=== PATIENT | female | born 1965 | race Caucasian/White ===

== ENCOUNTER 2018-01-23 09:54 | Emergency (ER) | payer BC, SELFPAY ==
--- NOTE | 2018-01-23 10:18 | EDPHYS ---
Physician Documentation [facility] Name: Lashanda Ureña Age: 52 yrs Sex: Female : 1965 Arrival Date: 01/23/2018 Time: 09:57 Bed 24 Private MD: Mitchell Reagan ED Physician Omar Cisneros HPI: 01/23 10:14 This 52 yrs old Female presents to ER via Ambulatory with complaints of Head gs Injury Without LOC-Adult. 10:14 The patient or guardian reports injury. The complaints affect the forehead. Context of gs injury: The problem was sustained at work, resulted from a fall, while walking. Onset: The symptoms/episode began/occurred suddenly, just prior to arrival. Associated signs and symptoms: Loss of consciousness: This patient did not experience any loss of consciousness. Pertinent negatives: biting tongue, incontinence, neck pain, vomiting, weakness in extremities, generalized weakness. Severity of symptoms: At their worst the symptoms were mild, in the emergency department the symptoms are unchanged. The patient has not experienced similar symptoms in the past. HAS SMALL INDENTION CONTUSION SCALP NO SWELLING. 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 - Social history:: The patient lives at home, Smoking status: Patient/guardian denies using tobacco. ROS: 10:14 Cardiovascular: Negative for palpitations. gs 10:14 Neuro: Negative for syncope, near syncope. 10:14 All other systems are negative. Exam: 10:14 Eyes: Pupils equal round and reactive to light, extra-ocular motions intact. Lids and gs lashes normal. Conjunctiva and sclera are non-icteric and not injected. Cornea within normal limits. Periorbital areas with no swelling, redness, or edema. ENT: Nares patent. No nasal discharge, no septal abnormalities noted. Tympanic membranes are normal and external auditory canals are clear. Oropharynx with no redness, swelling, or masses, exudates, or evidence of obstruction, uvula midline. Mucous membranes moist. Neck: Trachea midline, no thyromegaly or masses palpated, and no cervical lymphadenopathy. Supple, full range of motion without nuchal rigidity, or vertebral point tenderness. No Meningismus. Chest/axilla: Normal chest wall appearance and motion. Nontender with no deformity. No lesions are appreciated. Cardiovascular: Regular rate and rhythm with a normal S1 and S2. No gallops, murmurs, or rubs. Normal PMI, no JVD. No pulse deficits. Respiratory: Lungs have equal breath sounds bilaterally, clear to auscultation and percussion. No rales, rhonchi or wheezes noted. No increased work of breathing, no retractions or nasal flaring. Abdomen/GI: Soft, non-tender, with normal bowel sounds. No distension or tympany. No guarding or rebound. No evidence of tenderness throughout. Back: No spinal tenderness. No costovertebral tenderness. Full range of motion. Skin: Warm, dry with normal turgor. Normal color with no rashes, no lesions, and no evidence of cellulitis. MS/ Extremity: Pulses equal, no cyanosis. Neurovascular intact. Full, normal range of motion. Neuro: Awake and alert, GCS 15, oriented to person, place, time, and situation. Cranial nerves II-XII grossly intact. Motor strength 5/5 in all extremities. Sensory grossly intact. Cerebellar exam normal. Normal gait. 10:14 Constitutional: The patient appears alert, awake. 10:14 Head/face: Noted is contusion, that is superficial, of the forehead. Vital Signs: 10:01 BP 150 / 82; Pulse 72; Resp 18; Temp 98.7(TE); Pulse Ox 100% on R/A; Weight 97.52 kg; Height 5 ft. 2 in. (157.48 cm); Pain 2/10; 10:01 Body Mass Index 39.32 (97.52 kg, 157.48 cm) [place] Coma Score: 10:01 Eye Response: spontaneous(4). Verbal Response: oriented(5). Motor Response: obeys commands(6). Total: 15. 10:14 Eye Response: spontaneous(4). Verbal Response: oriented(5). Motor Response: obeys commands(6). Total: 15. Trauma Score (Adult): 10:01 Eye Response: spontaneous(1); Verbal Response: oriented(1); Motor Response: obeys hj commands(2); Systolic BP: > 89 mm Hg(4); Respiratory Rate: 10 to 29 per min(4); Robinson Score: 15; Trauma Score: 12 MDM: 10:09 Patient medically screened. gs 10:14 Differential diagnosis: Contusion of Hematoma on Concussion. Data reviewed: vital gs signs, nurses notes. Response to treatment: the patient's symptoms have markedly improved after treatment, and as a result, I will discharge patient. ED course: MINOR HEAD TRAUMA NO ct REQUIRED. Administered Medications: No medications were administered Disposition: 01/23/18 10:18 Discharged to Home. Impression: Contusion of other part of head. - Condition is Stable. - Discharge Instructions: Head Injury, Adult. - Work release form, Medication Reconciliation Form, Thank You Letter, Antibiotic Education, Prescription Opioid Use form. - Follow up: Private Physician; When: 2 - 3 days; Reason: Re-evaluation by your physician. Signatures: Edna Pinedo RN RN aj1 Anthony Sorensen RN RN Omar Cisneros MD MD Corrections: (The following items were deleted from the chart) 10:47 10:18 01/23/2018 10:18 Discharged to Home. Impression: Contusion of other part of head. aj1 Condition is Stable. Forms are Medication Reconciliation Form, Thank You Letter, Antibiotic Education, Prescription Opioid Use. Follow up: Private Physician; When: 2 - 3 days; Reason: Re-evaluation by your physician. gs
--- NOTE | 2018-01-23 10:18 | ER ---
Nurse's Notes [facility] Name: Lashanda Ureña Age: 52 yrs Sex: Female : 1965 Arrival Date: 01/23/2018 Time: 09:57 Bed 24 Private MD: Mitchell Reagan Diagnosis: Contusion of other part of head Presentation: 01/23 09:57 Presenting complaint: Patient states: i fell at work an hour ago and hit my forehead on hj a corner, wooden wall; denies LOC; reports nausea and denies vomiting;. Transition of care: patient was not received from another setting of care. Onset of symptoms was January 23, 2018. Initial Sepsis Screen: Does the patient meet any 2 criteria? No. Patient's initial sepsis screen is negative. Does the patient have a suspected source of infection? No. Patient's initial sepsis screen is negative. Care prior to arrival: None. 09:57 Method Of Arrival: Ambulatory 09:57 Acuity: ROSEANNA 4 10:00 Mechanism of Injury: Fall. Trauma event details: Injury occurred in the [facility], Injury occurred: in a public building. Injury occurred: January 23, 2018. Triage Assessment: 10:00 General: Appears in no apparent distress. uncomfortable, Behavior is calm, cooperative, hj appropriate for age. Pain: Complains of pain in forehead Pain currently is 2 out of 10 on a pain scale. 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 - Social history:: The patient lives at home, Smoking status: Patient/guardian denies using tobacco. Screenin:44 Abuse screen: Denies threats or abuse. Denies injuries from another. Nutritional aj1 screening: No deficits noted. Tuberculosis screening: No symptoms or risk factors identified. 10:46 Fall Risk None identified. aj1 Assessment: 10:44 General: Appears in no apparent distress. comfortable, Behavior is calm, cooperative, aj1 appropriate for age. Pain: Complains of pain in forehead Pain does not radiate. Pain currently is 5 out of 10 on a pain scale. Neuro: Level of Consciousness is awake, alert, obeys commands, Oriented to person, place, time, situation, Moves all extremities. Full function Gait is steady, Speech is normal, Facial symmetry appears normal, Pupils are PERRLA, Intact Denies LOC, vomiting. Cardiovascular: Patient's skin is warm and dry. Respiratory: Airway is patent Respiratory effort is even, unlabored, Respiratory pattern is regular, symmetrical. GI: No signs and/or symptoms were reported involving the gastrointestinal system. : No signs and/or symptoms were reported regarding the genitourinary system. EENT: No signs and/or symptoms were reported regarding the EENT system. Derm: No signs and/or symptoms reported regarding the dermatologic system. Skin is pink, warm \T\ dry. normal. Musculoskeletal: No signs and/or symptoms reported regarding the musculoskeletal system. Circulation, motion, and sensation intact. Vital Signs: 10:01 BP 150 / 82; Pulse 72; Resp 18; Temp 98.7(TE); Pulse Ox 100% on R/A; Weight 97.52 kg; hj Height 5 ft. 2 in. (157.48 cm); Pain 2/10; 10:01 Body Mass Index 39.32 (97.52 kg, 157.48 cm) [place] Coma Score: 10:01 Eye Response: spontaneous(4). Verbal Response: oriented(5). Motor Response: obeys hj commands(6). Total: 15. 10:14 Eye Response: spontaneous(4). Verbal Response: oriented(5). Motor Response: obeys commands(6). Total: 15. Trauma Score (Adult): 10:01 Eye Response: spontaneous(1); Verbal Response: oriented(1); Motor Response: obeys hj commands(2); Systolic BP: > 89 mm Hg(4); Respiratory Rate: 10 to 29 per min(4); Kiki Score: 15; Trauma Score: 12 ED Course: 09:57 Patient arrived in ED. rg4 09:57 Mitchell Reagan MD is Private Physician. rg4 09:59 Triage completed. hj 10:00 Arm band placed on right wrist. hj 10:03 Omar Cisneros MD is Attending Physician. gs 10:42 Edna Pinedo, RN is Primary Nurse. aj1 10:44 Patient has correct armband on for positive identification. Bed in low position. Call aj1 light in reach. Side rails up X 1. 10:44 No provider procedures requiring assistance completed. Patient did not have IV access aj1 during this emergency room visit. Administered Medications: No medications were administered Outcome: 10:18 Discharge ordered by . gs 10:44 Discharged to home ambulatory. aj1 10:44 Condition: good 10:44 Discharge instructions given to patient, family, Instructed on discharge instructions, follow up and referral plans. Demonstrated understanding of instructions, follow-up care. 10:47 Patient left the ED. aj1 Signatures: Edna Pinedo RN RN aj Anthony Sorensen RN RN hj Garcia, Rubi rg4 Omar Cisneros MD MD Corrections: (The following items were deleted from the chart) 10:02 10:01 Pulse 72bpm; Resp 18bpm; Pulse Ox 100% RA; Temp 98.7F Temporal; 97.52 kg; Height hj 5 ft. 2 in.; BMI: 39.3; Pain 2/10; hj
== END 2018-01-23 10:47 | disposition home or self-care (01) ==
LOC: ER 09:54
DX: S00.83XA Contusion of other part of head, initial encounter (principal); W18.39XA Other fall on same level, initial encounter; Y93.01 Activity, walking, marching and hiking; Y92.89 Other specified places as the place of occurrence of the external cause; Z88.0 Allergy status to penicillin; I10 Essential (primary) hypertension
CPT/HCPCS: 99281